=== PATIENT | female | born 1985 | race Caucasian/White ===

== ENCOUNTER → 2018-02-15 | Emergency (ER) | payer OTHER ==
[~2018-02-15] VITALS: Ht 160 cm; Wt 72.6 kg
[~2018-02-15] MED LIST: ACETAMINOPHEN 325 MG TAB PO ONE; CLINDAMYCIN HC150 MG PO; KETOROLAC TROME10 MG PO; KETOROLAC TROMETHAMINE 60 MG/2 ML VIAL IM ONE
[2018-02-16] VITALS: BP 140/88
== END | disposition home or self-care (01) ==
LOC: FSED 23:13
DX: L03.317 Cellulitis of buttock (principal); F41.9 Anxiety disorder, unspecified; F32.9 Major depressive disorder, single episode, unspecified; F17.210 Nicotine dependence, cigarettes, uncomplicated
CPT/HCPCS: 99283; J1885

== ENCOUNTER 2021-09-05 22:14 | Emergency (ER) | payer OTHER ==
[~2021-09-05] VITALS: Ht 160 cm; Wt 72.6 kg
[~2021-09-05 22:14] MED LIST changes: -ACETAMINOPHEN 325 MG TAB PO ONE; -KETOROLAC TROMETHAMINE 60 MG/2 ML VIAL IM ONE
[2021-09-05] MEDS ORDERED: PREDNISONE 20 MG TAB PO STA (22:39)
[2021-09-05] MEDS ORDERED: PANTOPRAZOLE SOD 40 MG TABEC PO ONE (22:45)
[2021-09-05] MEDS ORDERED: DIPHENHYDRAMINE HCL 25 MG CAP PO ONE (22:45)
[2021-09-05] MEDS ORDERED: DIPHENHYDRAMINE HCL 25 MG CAP ONE (22:52)
[2021-09-05] MEDS ORDERED: PANTOPRAZOLE SOD 40 MG TABEC ONE (22:52)
[2021-09-05] MEDS ORDERED: PREDNISONE 20 MG TAB ONE (22:52)
[2021-09-05] MEDS ORDERED: PREDNISONE20 MG PO (23:16)
[2021-09-05 23:25] VITALS: BP 141/93
== END 2021-09-05 23:36 | disposition home or self-care (01) ==
LOC: ER 22:33
DX: L29.9 Pruritus, unspecified (principal); T78.1XXA Other adverse food reactions, not elsewhere classified, initial encounter; F41.9 Anxiety disorder, unspecified
CPT/HCPCS: 99282; J7512; S0164

== ENCOUNTER 2021-09-07 20:49 | Emergency (ER) | payer OTHER ==
[~2021-09-07 20:49] MED LIST changes: +PREDNISONE20 MG PO
== END 2021-09-07 21:24 | disposition left against medical advice (07) ==
LOC: ER 21:21
DX: R69 Illness, unspecified (principal)

== ENCOUNTER 2024-11-22 17:14 | Emergency (ER) | payer SELFPAY ==
[~2024-11-22] VITALS: Ht 160 cm; Wt 72.6 kg
[2024-11-22 17:28] VITALS: TEMP 98.4
[2024-11-22 17:54] LABS: BASOPHILS % 0.4 % (0.0-1.0); EOSINOPHILS # (AUTO) 0.3 (0.0-0.4); EOSINOPHILS % 2.4 % (0.0-6.0); HEMATOCRIT 37.4 % (34.2-44.1); HEMOGLOBIN 11.8 g/dL (12.0-16.0); LYMPHOCYTES # (AUTO) 2.4 (1.0-3.2); LYMPHOCYTES % 21.3 % (18.0-39.1); MEAN CORPUSCULAR HEMOGLOBIN 25.4 pg (28-32); MEAN CORPUSCULAR HGB CONC 31.6 g/dL (31-35); MEAN CORPUSCULAR VOLUME 80.4 fL (81-99); MONOCYTES # (AUTO) 0.7 (0.2-0.8); MONOCYTES % 5.8 % (4.4-11.3); NEUTROPHILS # (AUTO) 7.8 (2.1-6.9); NEUTROPHILS % 69.8 % (38.7-80.0); PLATELET COUNT 394 x10e3/uL (140-360); RED BLOOD COUNT 4.65 x10e6/uL (3.6-5.1); WHITE BLOOD COUNT 11.17 x10e3/uL (4.8-10.8)
[2024-11-22 18:04] LABS: BILIRUBIN,URINE NEGATIVE (NEGATIVE); CLARITY,URINE HAZY (CLEAR); COLOR,URINE YELLOW (YELLOW); GLUCOSE, URINE NEGATIVE (NEGATIVE); KETONES,URINE NEGATIVE (NEGATIVE); LEUKOCYTE ESTERASE ,URINE NEGATIVE (NEGATIVE); NITRITE,URINE NEGATIVE (NEGATIVE); PH,URINE 7 (5 - 7); PROTEIN,URINE DIPSTICK >=300 (NEGATIVE); URINE UROBILINOGEN 0.2 mg/dL (0.2 - 1)
[2024-11-22 18:13] LABS: ALBUMIN 3.6 g/dL (3.5-5.0); ANION GAP 16.5 mmol/L (8-16); BILIRUBIN,TOTAL 0.4 mg/dL (0.2-1.2); CALCIUM 8.6 mg/dL (8.4-10.2); CREATININE, SERUM 0.82 mg/dL (0.57-1.11); POTASSIUM 3.5 mmol/L (3.5-5.1); TOTAL PROTEIN 7.2 g/dL (6.5-8.1)
[2024-11-22 18:23] LABS: BACTERIA,URINE MODERATE /HPF
[2024-11-22 18:24] LABS: EPITHELIAL CELLS,URINE MODERATE /LPF
[2024-11-22] MEDS ORDERED: SERTRALINE HCL50 MG PO (18:25)
[2024-11-22] MEDS ORDERED: SEROQUEL25 MG PO (18:25)
[2024-11-22] MEDS: HYDRALAZINE HCL 20 MG/ML VIAL IV STA ×2 (19:18→21:19)
[2024-11-22] MEDS: MAGNESIUM/ALUMINUM/SIMETHICONE 30 ML UDC PO ONE (20:26)
[2024-11-22] MEDS: BELLADONNA ALK/PHENOBARBITAL 5 ML UDC PO ONE (20:27)
[2024-11-22] MEDS: ONDANSETRON HCL INJ 2MG/ML 2ML 2 MG/ML VIAL IV STA (20:27)
[2024-11-22] MEDS: LIDOCAINE VISC 2% SOLN 15 ML UDC PO ONE (20:27)
[2024-11-22 20:51] VITALS: PULSE 83; RESP 18
[2024-11-22] MEDS: CLONIDINE HCL 0.1 MG TAB PO ONE (21:28)
[2024-11-22] MEDS ORDERED: TENORMIN25 MG PO (21:40)
[2024-11-22 21:53] VITALS: BP 149/73; PULSE 74; RESP 18; TEMP 98.6; O2SAT 98
== END 2024-11-22 21:49 | disposition home or self-care (01) ==
LOC: ER 18:36
DX: R51.9 Headache, unspecified (principal); I10 Essential (primary) hypertension; F41.9 Anxiety disorder, unspecified; F32.A Depression, unspecified
CPT/HCPCS: 36415; 70450; 80053; 81001; 81025; 85025; 93005; 99284; J0360; J2405